=== PATIENT | male | born 1955 | race Caucasian/White ===

== ENCOUNTER 2017-08-03 16:23 | Outpatient (CLI) | payer OTHER ==
--- NOTE | 2017-08-04 10:18 | MRI Preliminary Report ---
Exam: MRI CERVICAL SPINE W/O IMPRESSION: 1. Mild degenerative disk and facet changes. 2. Disk osteophyte complexes at C4-C5 and C5-C6 result in mild central canal stenosis. 3. Disk osteophyte complexes at C3-C4 and C6-C7 result in minimal central canal stenosis. 4. Varying degrees of neural foramen stenosis, most prominent at C3-C4 on the left, C4-C5 bilaterally , and C5-C6 bilaterally where there is moderate stenosis. [facility] SITE ID: [id number]
--- NOTE | 2017-08-04 16:41 | MRI Report ---
EXAM: MRI CERVICAL SPINE WITHOUT CONTRAST EXAM DATE: 08/03/2017 04:54 PM. CLINICAL HISTORY: Spinal stenosis, cervical region. COMPARISONS: None available. TECHNIQUE: Multiplanar, multisequence T1-weighted and fluid-sensitive sequences of the cervical spine without contrast. Other: None. FINDINGS: Neurologic Structures: The visualized posterior fossa structures are unremarkable. No signal abnormal ity in the visualized spinal cord. Alignment: No scoliosis or spondylolisthesis. Bone Marrow: No fracture or bone lesion. Mild fatty endplate changes at C4-C5 and C6-C7. No gross bon e marrow edema. Interspace Levels/Facets: C1-C2: Minimal degenerative change anteriorly. C2-C3: Minimal central disk protrusion. Mild bilateral facet hypertrophy. No stenosis. C3-C4: Small disk osteophyte complex, asymmetric to the left. Mild bilateral facet hypertrophy. Minim al central canal stenosis. Mild right and moderate left neural foramen stenosis. C4-C5: Small disk osteophytes complex. Mild bilateral facet hypertrophy. Mild central canal stenosis with subtle flattening along the anterior aspect cervical cord. Moderate bilateral neural foramen buddy nosis. C5-C6: Small disk osteophyte complex. Mild bilateral facet hypertrophy. Mild central canal stenosis w ith minimal flattening along the anterior aspect cervical cord. Moderate bilateral neural foramen buddy nosis. C6-C7: Small disk osteophyte complex with superimposed small right paracentral disk protrusion. Mild bilateral facet hypertrophy. Minimal central canal stenosis with subtle mass effect along the anterio r right aspect of the cervical cord. Mild bilateral neural foramen stenosis. C7-T1: Mild bilateral facet hypertrophy. No stenosis. Musculature: Normal. No edema or fatty atrophy. Other: The paravertebral and prevertebral soft tissues are unremarkable. IMPRESSION: 1. Mild degenerative disk and facet changes. 2. Disk osteophyte complexes at C4-C5 and C5-C6 result in mild central canal stenosis. 3. Disk osteophyte complexes at C3-C4 and C6-C7 result in minimal central canal stenosis. 4. Varying degrees of neural foramen stenosis, most prominent at C3-C4 on the left, C4-C5 bilaterally , and C5-C6 bilaterally where there is moderate stenosis. [facility] Referring Provider Line: [phone] SITE ID: [id number]
== END 2017-08-03 16:24 | disposition home or self-care (01) ==
LOC: DI 16:23
PROVIDERS: ATTEND Family Medicine
DX: M50.21 Other cervical disc displacement, high cervical region (principal); M89.38 Hypertrophy of bone, other site
CPT/HCPCS: 72141

== ENCOUNTER 2020-04-25 07:27 | Day surgery (SDC) | payer MEDICARE, OTHER ==
[2020-04-25] MEDS ORDERED: LACTATED RINGERS 1,000 ML IV ONE ×2 (07:36→08:51)
[2020-04-25] MEDS ORDERED: fentaNYL 250 MCG/5 ML VIAL IVP ONE (08:22)
[2020-04-25] MEDS ORDERED: MIDAZOLAM 2 MG/2 ML VIAL IVP ONE (08:22)
[2020-04-25 09:00] VITALS: BP 100/64
== END 2020-04-25 07:28 | disposition home or self-care (01) ==
LOC: SDS 07:27
PROVIDERS: ATTEND Surgery
DX: Z12.11 Encounter for screening for malignant neoplasm of colon (principal); K57.30 Diverticulosis of large intestine without perforation or abscess without bleeding; K64.8 Other hemorrhoids; Z80.0 Family history of malignant neoplasm of digestive organs
CPT/HCPCS: G0105; J3010; J7120

== ENCOUNTER 2022-05-23 12:07 | Emergency (ER) | payer MEDICARE, OTHER ==
[2022-05-23] MEDS ORDERED: SODIUM CHLORIDE 0.9% 1,000 ML IV STA ×2 (12:32)
[2022-05-23] MEDS ORDERED: MAG HYDROX/AL HYDROX/SIMETH 30 ML UDC PO STA (12:41)
[2022-05-23] MEDS ORDERED: SUCRALFATE 1 GM/10 ML UDC PO STA (12:41)
[2022-05-23] MEDS ORDERED: FAMOTIDINE 20 MG TABLET PO STA (12:41)
--- NOTE | 2022-05-23 12:45 | ED Physician Documentation ---
PD HPI ABD PAIN - Stated complaint Stated Complaint: INDIGESTION - Chief complaint Chief Complaint: Cardiac - History obtained from History obtained from: Patient, Family - History of Present Illness Timing - onset: How many days ago (2) Timing - duration: Days Timing - details: Gradual onset Quality: Aching, Dull, Pain Location: Epigastric Radiation: Other (states once radiated to his back) Associated symptoms: Nausea. No: Fever, Vomiting, Hematemesis, Diarrhea, Constipation, Melena, Hematochezia, Dysuria, Hematuria, Chest pain - Additional information Additional information: Patient is a 66-year-old male who presents to the emergency department complaining of epigastric abdominal pain. This lasted for about 15 to 20 seconds at a time. He states it feels like a pressure. He has a sour taste in the back of his mouth. He states it feels like indigestion. He states he recently started Trulicity and has had increased belching since then. The pain usually resolves when he rubs his stomach. Does not seem to change much with food. He tried omeprazole which he feels like he might have helped. He contacted his doctor who sent him here for evaluation. No chest pain. No shortness of breath. He states he has not had much appetite the past 2 days. No vomiting or diarrhea. Has had mild nausea. Review of Systems Ten Systems: 10 systems reviewed and negative Constitutional: denies: Fever, Chills Respiratory: denies: Dyspnea GI: denies: Vomiting, Diarrhea Skin: denies: Rash Musculoskeletal: denies: Neck pain, Back pain Neurologic: denies: Headache PD PAST MEDICAL HISTORY - Past Medical History Past Medical History: Yes Cardiovascular: Hypertension, High cholesterol Respiratory: COPD Endocrine/Autoimmune: Type 2 diabetes GI: None : Benign prostate hypertrophy HEENT: Other Psych: None Musculoskeletal: Osteoarthritis Derm: None - Past Surgical History General: Colonoscopy Ortho: Arthroscopic surgery - Present Medications Home Medications: Ambulatory Orders Medication Instructions Recorded Confirmed Aspirin 81 mg PO DAILY 04/25/20 04/25/20 Gabapentin 300 mg PO BID 04/25/20 04/25/20 Lisinopril [Zestril] 40 mg PO DAILY 04/25/20 04/25/20 Simvastatin 20 mg PO DAILY 04/25/20 04/25/20 Tamsulosin [Flomax] 0.4 mg PO BID 04/25/20 04/25/20 hydroCHLOROthiazide 25 mg PO DAILY 04/25/20 04/25/20 [Hydrochlorothiazide] metFORMIN [Glucophage] 500 mg PO DAILY 04/25/20 04/25/20 Famotidine [Pepcid] 20 mg PO BID #60 tablet 05/23/22 Sucralfate [Carafate] 1 gm PO ACHS #60 tablet 05/23/22 - Allergies Allergies/Adverse Reactions: Allergies Allergy/AdvReac Type Severity Reaction Status Date / Time No Known Drug Allergies Allergy Verified 05/23/22 12:20 PD ED PE NORMAL - Vitals Vital signs reviewed: Yes - General General: Alert and oriented X 3, No acute distress, Well developed/nourished - HEENT HEENT: PERRL, Moist mucous membranes - Neck Neck: Supple, no meningeal sign - Cardiac Cardiac: RRR, No murmur, Strong equal pulses - Respiratory Respiratory: No respiratory distress, Clear bilaterally - Abdomen Abdomen: Soft, Non distended, Other (mild TTP epigastric without peritoneal signs) - Derm Derm: Warm and dry - Neuro Neuro: Alert and oriented X 3 - Psych Psych: Normal mood, Normal affect Results - Vitals Vitals: Vital Signs - 24 hr 05/23/22 05/23/22 05/23/22 12:17 12:50 13:20 Temperature 36.8 C Heart Rate 110 H 91 82 Respiratory 16 18 18 Rate Blood Pressure 91/55 L 95/57 L 104/55 L O2 Saturation 96 97 96 Oxygen O2 Source Room air - EKG (time done) 1224 Rate: Rate (enter#) (98) Rhythm: NSR [place]: Normal Intervals: Normal [place] QRS: Normal Ischemia: Normal ST segments, Q waves (II,III,aVF) Compare to prior EKG: Old EKG unavailable - Labs Labs: Laboratory Tests 05/23/22 05/23/22 05/23/22 12:52 12:52 12:52 WBC 7.1 RBC 4.70 Hgb 14.3 Hct 42.5 MCV 90.4 MCH 30.4 MCHC 33.6 RDW 12.3 Plt Count 266 MPV 9.4 Neut # (Auto) 4.9 Lymph # (Auto) 1.7 Dent # (Auto) 0.4 Eos # (Auto) 0.0 Baso # (Auto) 0.0 Absolute Nucleated RBC 0.00 Nucleated RBC % 0.0 Sodium 137 Potassium 3.4 L Chloride 98 L Carbon Dioxide 26 Anion Gap 13.0 BUN 23 H Creatinine 1.3 H Estimated GFR (MDRD) 55 L Glucose 170 H Calcium 10.3 Total Bilirubin 1.0 AST 38 ALT 30 Alkaline Phosphatase 56 Troponin I High Sens 5.9 Total Protein 7.5 Albumin 4.3 Globulin 3.2 Albumin/Globulin Ratio 1.3 Lipase 34 - Rads (name of study) cxr Radiology: Final report received, EMP read contemporaneously, See rad report PD MEDICAL DECISION MAKING - ED course Complexity details: reviewed results, re-evaluated patient (abd soft, nt, nd), considered differential (No ST elevation [place], no aortic dissection, no PE, no tension pneumothorax, no aortic aneurysm), d/w patient, d/w family ED course: 66-year-old male with epigastric abdominal pain intermittently for the past couple of days. No cardiac history. benign abd exam. He has also had increased belching. Symptoms have begun after starting Trulicity. These are known side effects of Trulicity, possible side effect of medication? No indication of acute IL. No indication of aortic dissection. No acute findings on EKG, chest x-ray. Symptoms resolved with a GI cocktail. Patient feels much better. We will trial him on Pepcid and Carafate for home. Recommend he talk to his doctor about stopping the Trulicity. Patient counseled regarding signs and symptoms for which I believe and urgent re-evaluation would be necessary. Patient with good understanding of and agreement to plan and is comfortable going home at this time Patient did have hypotension initially, resolved with IV fluids. Likely secondary to dehydration as he has not had very much oral intake in the past 2 days. Eating and drinking without difficulty here. He states that this is the first time he has had appetite in 2 days This document was made in part using voice recognition software. While efforts are made to proofread this document, sound alike and grammatical errors may occur. Departure - Departure Disposition: 01 Home, Self Care Clinical Impression: Dehydration, Dyspepsia Abdominal pain Qualifiers: Abdominal location: epigastric Qualified Code(s): R10.13 - Epigastric pain Hypotension Qualifiers: Hypotension type: unspecified hypotension type Qualified Code(s): I95.9 - Hypotension, unspecified Condition: Good Instructions: ED GERD, ED Abdominal Pain Unkn Cause Male Follow-Up: KASANDRA RIVERS DO [Primary Care Provider] - Within 1 week Prescriptions: Sucralfate [Carafate] 1 gm PO ACHS #60 tablet Famotidine [Pepcid] 20 mg PO BID #60 tablet Comments: Please follow-up with your doctor for further care. Your prescriptions were sent to the [facility] pharmacy. Use the medications as prescribed. As we discussed, this could be a side effect from the Trulicity. Your doctor may want to consider changing this medication. Your heart test did not show any acute abnormalities, but you do have what are called Q waves on your EKG, this can be a sign of old heart damage. Your doctor should have you perform a cardiac stress test. Please return if you worsen.
[2022-05-23 13:05] LABS: BASOPHILS % (AUTO) 0.4 %; EOSINOPHILS % (AUTO) 0.4 %; HCT - HEMATOCRIT 42.5 % (42.0-52.0); HGB - HEMOGLOBIN 14.3 g/dL (14.0-18.0); LYMPHOCYTES # (AUTO) 1.7 10^3/uL (1.5-3.5); LYMPHOCYTES % (AUTO) 24.1 %; MEAN CORPUSCULAR HEMOGLOBIN 30.4 pg (27.0-31.0); MEAN CORPUSCULAR HGB CONC 33.6 g/dL (32.0-36.0); MEAN CORPUSCULAR VOLUME 90.4 fL (80.0-94.0); MEAN PLATELET VOLUME 9.4 fL (7.4-11.4); MONOCYTES # (AUTO) 0.4 10^3/uL (0.0-1.0); MONOCYTES % (AUTO) 6.1 %; NEUTROPHILS # (AUTO) 4.9 10^3/uL (1.5-6.6); NEUTROPHILS % (AUTO) 68.7 %; PLT - PLATELET COUNT 266 10^3/uL (130-450); RED CELL DISTRIBUTION WIDTH 12.3 % (12.0-15.0); WHITE BLOOD COUNT 7.1 x10^3/uL (4.8-10.8)
--- NOTE | 2022-05-23 13:16 | XRAY Report ---
PROCEDURE: Chest 1 View X-Ray INDICATIONS: Chest pain TECHNIQUE: One view of the chest was acquired. COMPARISON: None. FINDINGS: Surgical changes and devices: None. Lungs and pleura: No pleural effusions or pneumothorax. Lungs are clear. Mediastinum: Mediastinal contours appear normal. Heart size is normal. Bones and chest wall: No suspicious bony lesions. Overlying soft tissues appear unremarkable. IMPRESSION: No acute radiographic abnormality. Reviewed by: Finn Nino MD on 05/23/2022 1:14 PM PST Approved by: Finn Nino MD on 05/23/2022 1:14 PM [facility] Station ID: [id number]
[2022-05-23 13:24] LABS: ALBUMIN 4.3 g/dL (3.2-5.5); ALBUMIN/GLOBULIN RATIO 1.3 (1.0-2.2); CALCIUM 10.3 mg/dL (8.5-10.3); CREATININE 1.3 mg/dL (0.6-1.2); POTASSIUM 3.4 mmol/L (3.5-5.0); TOTAL PROTEIN 7.5 g/dL (6.7-8.2)
[2022-05-23 14:17] VITALS: BP 110/60
== END 2022-05-23 14:17 | disposition home or self-care (01) ==
LOC: ED 12:07
DX: E86.0 Dehydration (principal); R10.13 Epigastric pain; I95.9 Hypotension, unspecified
CPT/HCPCS: 36415; 71045; 80053; 83690; 84484; 85025; 93005; 96360; 99284; A9270

== ENCOUNTER 2022-06-26 14:52 | Outpatient (CLI) | payer MEDICARE, OTHER | END 2022-06-26 14:53 | disposition home or self-care (01) | LOC: DI 14:52 | PROVIDERS: ATTEND Student in an Organized Health Care Education/Training Program | DX: R10.13 Epigastric pain (principal); R94.31 Abnormal electrocardiogram [ECG] [EKG]; I08.1 Rheumatic disorders of both mitral and tricuspid valves; I77.810 Thoracic aortic ectasia | CPT/HCPCS: 93306 ==